=== PATIENT | male | born 1995 | race Caucasian/White ===

== ENCOUNTER 2021-12-13 08:59 | Emergency (ER) | payer BC ==
[2021-12-13 09:50] LABS: HEMOGLOBIN 15.5 gm/dl (14.0-17.5); RED BLOOD COUNT 5.1 M/UL (4.20-5.50); WHITE BLOOD COUNT 8.3 K/UL (4.5-11.0)
[2021-12-13 10:12] LABS: BUN/CREATININE RATIO 8 (0-10)
== END 2021-12-13 11:33 | disposition home or self-care (01) ==
LOC: ER1 08:59
PROVIDERS: Emergency Medicine
DX: E87.6 Hypokalemia (principal); R42 Dizziness and giddiness; F17.220 Nicotine dependence, chewing tobacco, uncomplicated
CPT/HCPCS: 80053; 82962; 85025; 93005; 99284

== ENCOUNTER 2022-01-03 23:53 | Emergency (ER) | payer BC ==
[2022-01-04] MEDS ORDERED: VISTARIL 25 MG25 MG PO (04:17)
== END 2022-01-04 04:35 | disposition home or self-care (01) ==
LOC: ER1 23:53
DX: F41.9 Anxiety disorder, unspecified (principal); R07.89 Other chest pain; F17.220 Nicotine dependence, chewing tobacco, uncomplicated
CPT/HCPCS: 71046; 93005; 99285